=== PATIENT | female | born 1950 | race Caucasian/White ===

== ENCOUNTER 2020-11-19 18:42 | Emergency (ER) | payer MEDICARE, OTHER ==
[~2020-11-19] VITALS: Ht 165.1 cm; Wt 76.8 kg
== END 2020-11-19 19:19 | disposition home or self-care (01) ==
LOC: FSED 19:10
DX: H10.9 Unspecified conjunctivitis (principal); Z91.041 Radiographic dye allergy status; Z91.040 Latex allergy status
CPT/HCPCS: 99282